=== PATIENT | male | born 1965 | race Caucasian/White ===

== ENCOUNTER 2017-12-29 10:39 | Emergency (ER) | payer BC ==
--- NOTE | 2017-12-29 10:50 | EDM.PDOC ---
ED HPI GENERAL MEDICAL PROBLEM - General Chief Complaint: Allergic Reaction Stated Complaint: ALLERGIC REACTION Time Seen by Provider: 12/29/17 10:48 Source of Information: Reports: Patient History Limitations: Reports: No Limitations - History of Present Illness INITIAL COMMENTS - FREE TEXT/NARRATIVE: HISTORY AND PHYSICAL: History of present illness: Patient is a 52-year-old male who presents to the emergency room today with complaints of redness and swelling to the left hand is waking up this morning. He states that "sometimes when I get bitten by a bug swell up like this". He states that "if I don't catch it early" to redness and swelling will spread and go up the extremity. He describes this as a cellulitis, which requires medication, although he is unsure of what he has had in the past. Her, chills, chest pain or shortness of breath. Denies any abdominal pain, nausea, vomiting, diarrhea or constipation. All range of motion and good flexion and extension of the affected extremity. Review of systems: As per history of present illness and below otherwise all systems reviewed and negative. Past medical history: As per history of present illness and as reviewed below otherwise noncontributory. Surgical history: As per history of present illness and as reviewed below otherwise noncontributory. Social history: No reported history of drug or alcohol abuse. Family history: As per history of present illness and as reviewed below otherwise noncontributory. Physical exam: General: Developed and well-nourished 52-year-old male. Alert and oriented. Nontoxic appearing and in no acute distress. HEENT: Atraumatic, normocephalic, pupils equal and reactive bilaterally, negative for conjunctival pallor or scleral icterus, mucous membranes moist, throat clear, neck supple, nontender, trachea midline. No drooling or trismus noted. No meningeal signs Lungs: Clear to auscultation, breath sounds equal bilaterally, chest nontender. Heart: S1S2, regular rate and rhythm without overt murmur Abdomen: Soft, nondistended, nontender. Negative for masses or hepatosplenomegaly. Negative for costovertebral tenderness. Pelvis: Stable nontender. Genitourinary: Deferred. Rectal: Deferred. Skin: Diffuse Erythema and mild soft tissue swelling noted to the dorsal aspect of the left hand, does not extend into the fingers or above the wrist. Nonfluctuant. Otherwise skin is intact, warm, dry. No lesions or rashes noted. Extremities: Atraumatic, negative for cords or calf pain. Neurovascular unremarkable. Neuro: Awake, alert, oriented. Cranial nerves II through XII unremarkable. Cerebellum unremarkable. Motor and sensory unremarkable throughout. Exam nonfocal. Notes: This does appear to be an early cellulitis, area/border was outlined with a surgical marker. We'll treat with Keflex for the cellulitis. Although I will give him Solu-Medrol here and a prescription for Medrol Dosepak for home if there is a allergic component to it. Encouraged him taking Benadryl over-the- counter Diagnostics: N/A Therapeutics: Solu-Medrol IM Impression: Cellulitis Plan: 1. Please take the medications as prescribed. Use [id number] Benadryl routinely over the next 24-48 hours. 2. Continue to monitor the site for worsening signs of infection. 3. Follow-up with your primary care provider in the next 1-2 days. Return to the ED as needed and as discussed. Definitive disposition and diagnosis as appropriate pending reevaluation and review of above. Onset: Today Left Hand Pain Score (Numeric/FACES): 2 - Related Data Allergies Allergy/AdvReac Type Severity Reaction Status Date / Time bee venom protein (honey bee) Allergy Swelling Verified 12/29/17 10:57 Home Meds: Home Meds . [No Known Home Meds] 12/29/17 [History] ED ROS ALLERGIC REACTION - Review of Systems Review Of Systems: ROS reveals no pertinent complaints other than HPI. ED EXAM GENERAL NO PERIP PULSE - Physical Exam Exam: See Below (See dictation) Course - Vital Signs Last Recorded V/S: Last Vital Signs Temp 97.6 F 12/29/17 10:58 Pulse 78 12/29/17 11:45 Resp 18 12/29/17 11:45 BP 132/83 12/29/17 11:45 Pulse Ox 98 12/29/17 11:45 - Orders/Labs/Meds Meds: Medications Discontinued Medications Generic Name Dose Route Start Last Admin Trade Name Freq PRN Reason Stop Dose Admin Methylprednisolone Sodium Succinate 125 mg 12/29/17 11:08 12/29/17 11:49 Solu-Medrol IM 12/29/17 11:09 Not Given ONETIME ONE Departure - Departure Time of Disposition: 11:12 Disposition: Home, Self-Care 01 Clinical Impression: Cellulitis Qualifiers: Site of cellulitis: extremity Site of cellulitis of extremity: upper extremity Laterality: left Qualified Code(s): L03.114 - Cellulitis of left upper limb - Discharge Information Instructions: Cellulitis, Adult, [id number] Referrals: PCP,Unknown [Ordering Only Provider] - Forms: ED Department Discharge Additional Instructions: The following information is given to patients seen in the emergency department who are being discharged to home. This information is to outline your options for follow-up care. We provide all patients seen in our emergency department with a follow-up referral. The need for follow-up, as well as the timing and circumstances, are variable depending upon the specifics of your emergency department visit. If you don't have a primary care physician on staff, we will provide you with a referral. We always advise you to contact your personal physician following an emergency department visit to inform them of the circumstance of the visit and for follow-up with them and/or the need for any referrals to a consulting specialist. The emergency department will also refer you to a specialist when appropriate. This referral assures that you have the opportunity for follow-up care with a specialist. All of these measure are taken in an effort to provide you with optimal care, which includes your follow-up. Under all circumstances we always encourage you to contact your private physician who remains a resource for coordinating your care. When calling for follow-up care, please make the office aware that this follow-up is from your recent emergency room visit. If for any reason you are refused follow-up, please contact the [facility] at and asked to speak to the emergency department charge nurse. [facility] [address] [place] [id number] 1. Please take the medications as prescribed. Use [id number] Benadryl routinely over the next 24-48 hours. 2. Continue to monitor the site for worsening signs of infection. 3. Follow-up with your primary care provider in the next 1-2 days. Return to the ED as needed and as discussed.
[2017-12-29] MEDS ORDERED: methylPREDNISolone Sodium Succinate 125 MG/2 ML SDV IM ONE (11:08)
== END 2017-12-29 11:45 | disposition home or self-care (01) ==
LOC: MW.ED 10:39
DX: L03.114 Cellulitis of left upper limb (principal); Z91.030 Bee allergy status
CPT/HCPCS: 99283

== ENCOUNTER 2022-05-28 09:34 | Day surgery (SDC) | payer BC ==
[~2022-05-28 09:34] MED LIST: Lactated Ringers 1,000 ML IV SCH; Propofol 200 MG/20 ML SDV ONE; fentaNYL 100 MCG/2 ML SDV ONE
[2022-05-28] MEDS ORDERED: Propofol 200 MG/20 ML SDV ONE ×3 (10:14→10:53)
[2022-05-28] MEDS ORDERED: fentaNYL 100 MCG/2 ML SDV ONE (10:30)
[2022-05-28] MEDS ORDERED: Lactated Ringers 1,000 ML IV SCH (11:15)
== END 2022-05-28 12:00 | disposition home or self-care (01) ==
LOC: MW.SDS 09:34
PROVIDERS: ATTEND Surgery
DX: Z12.11 Encounter for screening for malignant neoplasm of colon (principal); D12.7 Benign neoplasm of rectosigmoid junction; D12.2 Benign neoplasm of ascending colon; D12.4 Benign neoplasm of descending colon; K57.30 Diverticulosis of large intestine without perforation or abscess without bleeding; F17.210 Nicotine dependence, cigarettes, uncomplicated; G47.33 Obstructive sleep apnea (adult) (pediatric); M19.90 Unspecified osteoarthritis, unspecified site; Z88.0 Allergy status to penicillin; Z91.030 Bee allergy status; Z79.899 Other long term (current) drug therapy
CPT/HCPCS: 45381; 45385; J2704; J3010; J7120; 00812

== ENCOUNTER 2022-05-29 09:27 | Emergency (ER) | payer BC ==
[2022-05-29 14:36] LABS: CARBON DIOXIDE,CO2 26.2 mmol/L (21.0-32.0); POTASSIUM,K 3.7 mmol/L (3.5-5.1)
[2022-05-29] MEDS ORDERED: Iopamidol 755 MG/ML 500 ML Multipack Bottle IVPUSH ONE (15:05)
== END 2022-05-29 16:01 | disposition home or self-care (01) ==
LOC: MW.ED 09:27
DX: K57.32 Diverticulitis of large intestine without perforation or abscess without bleeding (principal); Z91.030 Bee allergy status; Z88.0 Allergy status to penicillin; Z79.899 Other long term (current) drug therapy
CPT/HCPCS: 36415; 74177; 80053; 85025; 99284; Q9967

== ENCOUNTER 2023-10-21 11:03 | Day surgery (SDC) | payer BC, OTHER ==
[~2023-10-21 11:03] MED LIST changes: -Propofol 200 MG/20 ML SDV ONE; -fentaNYL 100 MCG/2 ML SDV ONE
[2023-10-21] MEDS: Lactated Ringers 1,000 ML IV SCH (11:30)
[2023-10-21] MEDS ORDERED: propofoL 50 ML ONE (13:29)
[2023-10-21] MEDS ORDERED: Lactated Ringers 1,000 ML IV SCH (14:30)
== END 2023-10-21 15:08 | disposition home or self-care (01) ==
LOC: MW.SDS 11:03
PROVIDERS: ATTEND Surgery
DX: Z12.11 Encounter for screening for malignant neoplasm of colon (principal); K57.30 Diverticulosis of large intestine without perforation or abscess without bleeding; Z86.010 Personal history of colon polyps; G47.30 Sleep apnea, unspecified; F17.210 Nicotine dependence, cigarettes, uncomplicated
CPT/HCPCS: 45378; J2704; J7120; 00812

== ENCOUNTER 2024-02-27 14:13 | Emergency (ER) | payer OTHER ==
[2024-02-27] MEDS: predniSONE 20 MG Tab PO ONE (14:39)
== END 2024-02-27 14:50 | disposition home or self-care (01) ==
LOC: MW.ED 14:13
DX: T63.441A Toxic effect of venom of bees, accidental (unintentional), initial encounter (principal); F17.210 Nicotine dependence, cigarettes, uncomplicated; Z75.8 Other problems related to medical facilities and other health care; Z88.0 Allergy status to penicillin; Z91.030 Bee allergy status; Z79.899 Other long term (current) drug therapy
CPT/HCPCS: 99282; A9270; 99283